=== PATIENT | female | born 1960 | race Caucasian/White ===

== ENCOUNTER 2017-07-12 13:26 | Emergency (ER) | payer MEDICARE, SELFPAY ==
[2017-07-12 13:26] VITALS: BP 121/85; PULSE 116; RESP 18; TEMP 37.7; O2SAT 94; BMI 30.9
[2017-07-12] MEDS: 0.9% Normal Saline 1,000 ML 999 ML IV (14:12)
[2017-07-12 14:18] LABS: Absolute Lymphocyte Count 2.12 X10^3/ul (0.83-4.51); Absolute Neutrophil Count 4.5 X10^3/uL (2.0-7.7); Basophil# 0.11 X10^3/uL; Basophil% 1.4 % (0-1); Eosinophil# 0.19 X10^3/uL; Eosinophils% 2.4 % (0-5); Hematocrit 43.4 % (37-47); Hemoglobin 15.2 g/dl (12.0-15.0); Lymphocyte # 2.12 X10^3/ul (4.0); Lymphocyte % 27.1 % (19-41); Mean Corpuscular Hgb 31.3 pg (27.0-32.0); Mean Corpuscular Volume 89.5 fL (81-99); Monocyte# 0.84 X10^3/uL; Monocyte% 10.7 % (0-10); Neutrophil # 4.53 X10^3/uL (2.7-7.7); Platelet Count 183 K/mm3 (150-450); RBC Distribution Width CV 13.9 % (11.6-14.6); RBC Distribution Width SD 44.6 fl (35.1-43.9); Red Blood Count 4.85 M/mm3 (4.2-5.4); White Blood Count 7.8 K/mm3 (4.4-11.0)
[2017-07-12 14:19] LABS: POSITIVE COUNT NO; POSITIVE DIFFERENTIAL NO; POSITIVE MORPHOLOGY NO
[2017-07-12 14:28] LABS: ALB/GLOB Ratio 0.8 RATIO (0.9-2.4); AST(SGOT) 61 U/L (15-37); Alanine Aminotransfer ALT/SGPT 77 U/L (13-56); Albumin, Serum 3.7 g/dL (3.2-5.0); Alkaline Phosphatase 49 U/L (45-117); Anion Gap 10 (5-15); BUN 14 mg/dL (7-18); BUN/Creat Ratio 17.7 RATIO (10-20); Calcium,Total 8.7 mg/dL (8.5-10.1); Chloride 102 mmol/L (98-107); Creatinine, Serum 0.79 mg/dL (0.55-1.02); EST Glomerular Filtration Rate 79 mL/min (>60); Est Glom Filt Rate - Afr Amer 96 mL/min (>60); Estimated Creatinine Clearance 67.03 ml/min; Globulin 4.9 g/dL (2.2-4.2); Glucose 166 mg/dL (74-106); Lipase 139 U/L (73-393); Potassium 4.2 mmol/L (3.5-5.1); Protein, Total 8.6 g/dL (6.4-8.2); Sodium Level 135 mmol/L (136-145)
[2017-07-12] MEDS: Morphine 4 MG/ML Syringe IV (15:16)
[2017-07-12 15:20] VITALS: BP 139/71; PULSE 101; RESP 18; O2SAT 94
[2017-07-12 15:27] LABS: Bacteria 0 SEEN /hpf (None Seen); Mucous, Urine 0 SEEN /hpf (<or=2+); Red Blood Cells-Urine 0 SEEN /hpf (0-5); Squamous Epithelial Cells - UA 0 SEEN /hpf (5-10); White Blood Cells 0 SEEN /hpf (0-5)
[2017-07-12 15:34] LABS: Color, Urine Yellow (Yellow); Glucose, Dipstick 1000 mg/dl (Normal); Ketone-Dipstick 50 mg/dl (Negative); Leukocyte Esterase-Dipstick Negative /ul (Negative); Nitrite-Dipstick Negative (Negative); Occult Blood-Urine Negative /ul (Negative); Protein-Dipstick Negative (Negative); Specific Gravity, Urine 1.015 (1.002-1.030); Urine Bilirubin Dipstick Negative (Negative); Urine Clarity Clear (Clear); Urine Urobilinogen Normal (Normal)
[2017-07-12 15:45] VITALS: O2SAT 89
--- NOTE | 2017-07-12 15:48 | ED.VISSUMM ---
- ER Visit Summary Date of Service: 07/12/17 Chief Complaint: Abdominal pain History of Present Illness: The patient is a 56 F who presents with abdominal pain. Been ongoing for the past 3 days. She describes cramping and bloating in her epigastric area. It does not radiate. She is felt nauseous without vomiting. She started out constipated but then it moved to diarrhea yesterday. She also admits to some dysuria. She admits to a history of hiatal hernia as well as gastritis. She doubled her Protonix for the past couple of days but has not helped. She admits to some cold-like symptoms including a runny nose. Her temperature is 100.1?F earlier this week. Physical Examination: Vital signs reviewed. HEENT exam unremarkable. Heart is regular rate and rhythm without murmurs. Lungs are clear to auscultation. Abdomen is soft with epigastric tenderness to palpation. Extremities reveal no edema. Skin exam normal. Neurologic exam normal. Test Results: Laboratory studies are normal except for sodium 135, glucose 166. ALT and AST are slightly elevated at 77 and 61. Urinalysis normal Emergency Department Course and Treatment: Patient was given a GI cocktail and normal saline. She had no relief of her pain so she was given morphine and she feels better. This is likely gastritis. I will give the patient Shay and Sarah for home. She will need to follow-up with her PCP. I do not feel any imaging is necessary at this time. Treatment Plan: [] Disposition: Discharge Impression: Abdominal pain This note was generated with [employer] dictation software. It may contain incorrect words, spelling, and punctuation that were not noted in review of the chart prior to signing ED Disposition - Plan for ED Patient: Chief Complaint: Abd Pain Referrals: Care Physician,No Primary [Primary Care Provider] -
--- NOTE | 2017-07-12 15:50 | ED.DEP ---
ED Disposition - Plan for ED Patient: Disposition: Home or Assisted Living Chief Complaint: Abd Pain Instructions: ED Abdominal Pain Unkn Cause Prescriptions: Ondansetron [Zofran Odt] 4 mg PO Q8H PRN PRN #10 tab PRN Reason: Nausea Dicyclomine HCl [Bentyl] 20 mg PO TIDAC #20 cap Referrals: Care Physician,No Primary [Primary Care Provider] -
[2017-07-12 16:00] VITALS: BP 141/70; PULSE 100; RESP 18; O2SAT 93
== END 2017-07-12 16:02 | disposition home or self-care (01) ==
PROVIDERS: Emergency Provider Emergency Medicine
DX: R10.13 Epigastric pain (principal); R11.0 Nausea; K29.70 Gastritis, unspecified, without bleeding; K44.9 Diaphragmatic hernia without obstruction or gangrene; E03.9 Hypothyroidism, unspecified; E11.9 Type 2 diabetes mellitus without complications; Z79.84 Long term (current) use of oral hypoglycemic drugs; Z79.899 Other long term (current) drug therapy
CPT/HCPCS: 80053; 81001; 83690; 85025; 96361; 96374; 99283; J7030; A4216

== ENCOUNTER 2022-04-20 19:34 | Emergency (ER) | payer OTHER, SELFPAY ==
[2022-04-20 19:36] VITALS: BP 158/67; PULSE 92; RESP 16; TEMP 36.7; O2SAT 94; BMI 31.9
--- NOTE | 2022-04-20 21:06 | CT_ITS ---
INDICATION: Trauma EXAMINATION: CT BRAIN - CT Head or Brain W/O Contrast Injection TECHNIQUE: Multiple axial images were obtained of the head without intravenous contrast. A radiation dose optimization technique was used for this scan. IV Contrast dosage and agent: None. COMPARISON: None FINDINGS: BRAIN PARENCHYMA: No intra- or extra-axial hemorrhage. No evidence of acute infarct. No intracranial mass or mass effect. There is preservation of the bhandari/white matter interface. Posterior fossa structures are unremarkable. CSF SPACES: Appropriate for age. No hydrocephalus. Basal cisterns are patent. CALVARIUM, SKULL BASE, PARANASAL SINUSES AND MASTOID AIR CELLS: Multifocal paranasal sinus mucosal thickening. Small anterior right scalp contusion. ORBITS: Both globes, extraocular muscles, optic nerves and retrobulbar fat appear unremarkable. ASPECTS Score for Acute Strokes: 10 CT/Brain/Head without Contrast IMPRESSION: Negative Brain CT without contrast. Electronically Signed: Luis M Sanchez MD at 21:36 EST ,
--- NOTE | 2022-04-20 21:07 | EDS_ITS ---
HPI History of Present Illness Chief Complaint: Head Injury Informant: patient Narrative Narrative: Patient is a 61-year-old female with history of hypothyroid, diabetes and GERD presenting with head injury. Patient was attempting to bring her cat inside when she tripped on other outdoor rocks and fell headfirst onto a rock. She does not lose consciousness but temporarily could not see. She has a pretty severe headache which is slowly improving now that she is laying in bed. 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 She not take anything for symptoms prior to arrival. She does have some tingling on the right side of her face but denies any other numbness or weakness. Is not on any anticoagulation. No other complaints at this time. Tetanus Immunization: >10 years [facility] Medical History Diabetes type 2, controlled Hiatal hernia Hyperlipemia Hypothyroid Home Medications dapagliflozin 5 mg tablet (Farxiga) 5 mg PO DAILY 07/12/17 [History Last Taken Unknown] fexofenadine 180 mg tablet (Alice Allergy) 180 mg PO DAILY 07/12/17 [History Last Taken Unknown] fluticasone propionate 50 mcg/actuation nasal spray,suspension 2 spray DAILY 07/12/17 [History Last Taken Unknown] levothyroxine 175 mcg tablet 150 mcg PO DAILY 07/12/17 [History Last Taken Unknown] pantoprazole 40 mg tablet,delayed release 40 mg PO DAILY 07/12/17 [History Last Taken Unknown] sitagliptin phos 100 mg-metformin ER 1,000 mg tablet,extend rel 24h mp (Janumet XR) 1 ea PO DAILY 07/12/17 [History Last Taken Unknown] atorvastatin 40 mg tablet 40 mg PO DAILY 04/20/22 [History Last Taken Unknown] Allergy/AdvReac Type Severity Reaction Status Date / Time amoxicillin Allergy Rash Verified 04/20/22 19:39 clindamycin Allergy Hives Verified 04/20/22 19:39 Sulfa (Sulfonamide Allergy Rash Verified 04/20/22 19:38 Antibiotics) Social History Smoking Status: Former smoker ROS ROS ED Constitutional Constitutional ED: Denies chills or fever(s) Eyes Eyes: Reports change in vision ENT ENT ED: Denies ear pain, rhinorrhea or sore throat Cardiovascular Cardiovascular: Denies chest pain Respiratory/Chest Respiratory/Chest: Denies cough Gastrointestinal Gastrointestinal: Denies nausea or vomiting Musculoskeletal Musculoskeletal: Denies arthralgias or myalgias Integumentary Denies rash Neurologic Neurologic: Reports headache(s); Denies weakness Psychiatric Psychiatric: Denies anxiety Hematologic/Lymphatic Hematologic/Lymphatic: Denies easy bleeding or easy bruising EXAM Physical Exam Const Vital Signs: 04/20/22 19:36 04/20/22 20:51 Temperature 98.0 F Temperature Source Temporal Pulse Rate 92 Respiratory Rate 16 Respiratory Effort Normal Respiratory Depth Normal Respiratory Pattern Normal Blood Pressure 158/67 H Blood Pressure Mean 97 Pulse Ox 94 Oxygen Delivery Method Room Air Room Air Positive well nourished and well developed General Appearance ED: well developed and NAD HEENT Reports TM's clear HEENT Narrative: Abrasion and swelling of the right forehead. No active bleeding. Slight edema of the right eyebrow area and upper eyelid. Nose: Negative for septum abnormal Tympanic Membrane ED: Yes TM's clear Eyes PERRL and EOMs intact bilaterally General Eye ED: Yes other Other Details: No conjunctival hemorrhage appreciated, no signs of entrapment of the eye muscles Neck full ROM Neck Narrative: No step-off sign. General: Negative for tenderness Chest Wall inspection of chest normal Resp normal respiratory effort and clear to auscultation bilaterally Cardio regular rhythm and no murmurs GI non-distended Extremity normal to inspection and full ROM Neuro oriented x3, CN's II-XII intact bilaterally, moves all extremities, no focal motor deficits and no sensory deficits noted Skin Skin Narrative: Approximately 4 cm irregular superficial abrasion to the right forehead. Scattered superficial abrasions to the left thenar eminence/medial wrist MDM MDM MDM Narrative Medical decision making narrative: Patient is evaluated for closed head injury. She has an abrasion to her forehead. She has a temporary vision loss and some tingling on the right side of her face. Because of these findings I did obtain a head CT to rule out intracranial hemorrhage. Clinically I do not suspect an orbit fracture. CT is negative for any skull fracture or intracranial bleed. Patient is feeling better in the ER. She was given a dose of Tylenol. Will be discharged home. Is given concussion precautions. Is given a work note for tomorrow. Counseled alternate ibuprofen and Tylenol. Use ice for her forehead. Counseled on dependent swelling of the face associated with injuries. Patient agreeable with plan of care. Discharged home in stable and improved condition. Radiography Diagnostic Testing: Clinical Impression(s) from Imaging Studies Brain CT 04/20/22 21:06 IMPRESSION: Negative Brain CT without contrast. Electronically Signed: Luis M Sanchez MD at 21:36 EST , Discharge Plan Triage Chief Complaint: Head Injury ED Provider: Patricia Bartlett Dx/Rx/DC Orders Clinical Impression: Closed head injury, Abrasion of forehead Instructions: ED Concussion, ED Head Injury (Adult) Prescriptions: No Action levothyroxine 175 MCG tablet 150 mcg PO DAILY fexofenadine [Alice Allergy] 180 MG tablet 180 mg PO DAILY pantoprazole 40 MG tablet 40 mg PO DAILY fluticasone propionate 1 SPRAY spray,suspension 2 spray NASAL DAILY Janumet XR 1 EACH tablet, ER multiphase 24 hr 1 ea PO DAILY Farxiga 5 MG tablet 5 mg PO DAILY atorvastatin 40 mg Tablet 40 mg PO DAILY Stand Alone Forms: ED Work / School Excuse Disposition Disposition: Home, Self Care
[2022-04-20] MEDS: Acetaminophen 325 MG Tablet 650 MG PO (21:17)
== END 2022-04-20 22:33 | disposition home or self-care (01) ==
PROVIDERS: Emergency Provider Emergency Medicine; Visit Provider Emergency Medicine
DX: S00.81XA Abrasion of other part of head, initial encounter (principal); E11.9 Type 2 diabetes mellitus without complications; E78.5 Hyperlipidemia, unspecified; E03.9 Hypothyroidism, unspecified; Z79.84 Long term (current) use of oral hypoglycemic drugs; Z79.899 Other long term (current) drug therapy; W01.0XXA Fall on same level from slipping, tripping and stumbling without subsequent striking against object, initial encounter; Z87.891 Personal history of nicotine dependence
CPT/HCPCS: 70450; 99283

== ENCOUNTER 2025-03-31 16:44 | Emergency (ER) | payer MEDICARE, OTHER, SELFPAY ==
[2025-03-31 16:45] VITALS: BP 153/73; PULSE 87; RESP 15; TEMP 36.6; O2SAT 97; BMI 29.8
--- NOTE | 2025-03-31 16:48 | EX.ED.DYSGE1 ---
HPI History of Present Illness Chief Complaint: Abd Pain [facility] Medical History (Updated 03/31/25 @ 17:21 by Joseluis George) Hiatal hernia Hyperlipemia Hypothyroid Diabetes type 2, controlled Home Medications ?Medication ?Instructions ?Recorded ?Last Taken ?Type fexofenadine 180 mg tablet 180 mg PO DAILY 07/12/17 Unknown History (Alice Allergy) pantoprazole 40 mg tablet,delayed 40 mg PO DAILY 07/12/17 Unknown History release atorvastatin 40 mg tablet 40 mg PO DAILY 04/20/22 Unknown History biotin 10,000 mcg chewable tablet 20,000 mcg PO DAILY 03/31/25 Unknown History (Hair, Skin and Nails (biotin)) empagliflozin 10 mg-metformin ER 1 tab PO DAILY 03/31/25 Unknown History 1,000 mg tablet,extended release 24hr (Synjardy XR) levothyroxine 150 mcg tablet 150 mcg PO DAILY 03/31/25 Unknown History lorazepam 0.5 mg tablet 0.5 mg PO QHS PRN 03/31/25 Unknown History melatonin 5 mg capsule 10 mg PO QHS 03/31/25 Unknown History multivitamin (Daily Multi-Vitamin 1 tab PO DAILY 03/31/25 Unknown History tablet) naproxen sodium 220 mg tablet 440 mg PO DAILY PRN pain 03/31/25 Unknown History (Flanax (naproxen)) tirzepatide 7.5 mg/0.5 mL 7.5 mg subcut QWEEK 03/31/25 03/28/25 History subcutaneous pen injector (Mounjaro) Allergy/AdvReac Type Severity Reaction Status Date / Time amoxicillin Allergy Rash Verified 03/31/25 16:47 clindamycin Allergy Hives Verified 03/31/25 16:47 Sulfa (Sulfonamide Allergy Rash Verified 03/31/25 16:47 Antibiotics) Social History Smoking Status: Former smoker EXAM Physical Exam Const Vital Signs: 03/31/25 16:45 Temperature 97.8 F Temperature Source Oral Pulse Rate 87 Respiratory Rate 15 Blood Pressure 153/73 H Blood Pressure Mean 99 Pulse Ox 97 Oxygen Delivery Method Room Air MDM MDM MDM Narrative Medical decision making narrative: HISTORY OF PRESENT ILLNESS: Chief complaint: Abdominal pain 64-year-old female history of hyperlipidemia, hypothyroidism, type 2 diabetes, GERD presents with concern of right lower quadrant pain for 2 weeks. She states gallbladder feels hard to protruded. Has been noticing this for 2 weeks. No inciting event. Not worse with food. Normal bowel movements. Last bowel movement was yesterday. No melena hematochezia noted Notes pain with initiation of urination. Denies suprapubic pain. Denies fevers vomiting. Denies history of abdominal surgeries. REVIEW OF SYSTEMS: Pertinent positives: Abdominal pain, dysuria Pertinent negatives: As per HPI PHYSICAL EXAM: Nursing triage notes reviewed, Vital signs reviewed Constitutional: please see [facility] HENT: MMM Eyes: Pupils equal round and reactive to light, Extraocular muscles intact Neck: No stridor, no JVD, full neck ROM Lungs: Clear to auscultation, No wheezing or rales. No increased work of breathing, no conversational dyspnea, no accessory muscle use, no nasal flaring. No respiratory distress noted Heart: Regular rate and rhythm, No murmurs, No rubs and No gallops, 2+ distal pulses (radial, femoral, posterior tibial) in all extremities Abdomen: Soft, there is no tenderness, rigidity, rebound or guarding, no obvious peritoneal signs, no palpable pulsatile abdominal masses, no auscultated abdominal bruit : No CVAT Extremities: No edema Neuro: No new focal neurological deficits, cranial nerves II through XII intact, 5/5 strength in all present extremities. Intact sensation to light touch in all present extremities, 2+ reflexes bilateral patella tendons. Skin: No rash or lesions noted MEDICAL DECISION MAKING: Chief Complaint: please see HPI External records reviewed: Reviewed prior ED visit Factors affecting care: As per HPI Social determinants of health: Denies alcohol History obtained from others: none Consults: none [facility] Narrative: The patient was initially hemodynamically stable, afebrile and nontoxic-appearing. Exam without palpable hernia. No overlying skin changes. No rectal quadrant tenderness. Mauro sign. No pain over the appendix I considered the following differential diagnosis: Abdominal pain differential I obtained a broad lab and imaging workup to further determine if the patient was suffering from a life-threatening etiology. Gave Toradol for pain ALL IMAGES (IF OBTAINED) HAVE BEEN PERSONALLY REVIEWED AND INTERPRETED BY MYSELF. CBC without leukocytosis, severe anemia, no thrombocytopenia. CMP without evidence of acute kidney injury, significant electrolyte abnormality, anion gap to suggest end organ hypo-perfusion, no evidence of metabolic acidosis with a normal bicarbonate, no evidence of hepatobiliary obstructive pathology. Lipase is wnl indicating no pancreatic inflammation. Urinalysis shows no evidence of urinary inflammation suggestive of UTI CT scan abdomen pelvis shows no evidence of hernia, no evidence of bowel obstruction or other abnormality. Repeat abdominal exam benign. The patient's presentation remains unclear at this time. It is unlikely be life-threatening given her stable vitals, reassuring labs, reassuring images. Will have her follow-up with her PCP for further care as an outpatient. Strict return precautions will be discussed. The patient and/or family, caregivers express understanding. The patient and/or family, caregivers agrees with the plan. Shared decision making: I will have a discussion with the patient and or visitors regarding risk/benefits of further testing or admission. They will be made aware of of the risk/benefits inherent in this decision they will be given the opportunity to voice understanding. Total critical care time today provided was at least 0 minutes. This excludes separately billable procedures. Critical care time (if documented) is secondary to the patient having high probability of clinically significant/life threatening deterioration in the patient's condition which required my urgent intervention. Impression: 1. Abdominal pain 2. Abdominal protrusion Dispo: Discharge home This note was generated with [employer] dictation software. It may contain incorrect words, spelling, and punctuation that were not noted in review of the chart prior to signing. Lab Data Labs: Laboratory Results - last 24 hr 03/31/25 03/31/25 17:00 18:05 WBC 7.9 RBC 4.85 Hgb 14.2 Hct 42.4 MCV 87.4 MCH 29.3 MCHC 33.5 RDW Std Deviation 41.9 RDW Coeff of Naa 13.2 Plt Count 238 MPV 9.4 Immature Gran % (Auto) 0.400 Neut % (Auto) 42.3 L Lymph % (Auto) 43.1 H [place] % (Auto) 8.0 Eos % (Auto) 4.7 Baso % (Auto) 1.5 H Absolute Neuts (auto) 3.3 Absolute Lymphs (auto) 3.38 Nucleated RBC % 0 Sodium 136 Potassium 4.2 Chloride 101 Carbon Dioxide 23.3 Anion Gap 12 BUN 15 Creatinine 0.91 Estim Creat Clear Calc 61.82 Est GFR (MDRD) Non-Af 70 BUN/Creatinine Ratio 16.1 Glucose 135 H Calcium 9.4 Total Bilirubin 0.56 AST 34 H ALT 52 H Alkaline Phosphatase 62 Total Protein 7.6 Albumin 4.2 Globulin 3.4 Albumin/Globulin Ratio 1.2 Lipase 42 Urine Color Yellow Urine Clarity Clear Urine pH 7.0 Ur Specific [place] 1.010 Urine Protein 15 H Urine Glucose (UA) 1000 H Urine Ketones Negative Urine Occult Blood Negative Urine Nitrite Negative Urine Bilirubin Negative Urine Urobilinogen Normal Ur Leukocyte Esterase Negative Urine RBC 0-5 SEEN Urine WBC 0-5 SEEN Ur Squamous Epith Cells 0-5 SEEN Urine Bacteria 0 SEEN Urine Mucus 0 SEEN Radiography Diagnostic Testing: Clinical Impression(s) from Imaging Studies Abdomen/Pelvis CT 03/31/25 17:48 IMPRESSION: Diffuse fluid within the small bowels may reflect enteritis. No bowel obstruction. No definite hernias noted. Reading Location: [facility] Discharge Plan Triage Chief Complaint: Abd Pain ED Provider: Connor Castillo Dx/Rx/DC Orders Prescriptions: No Action fexofenadine [Alice Allergy] 180 MG tablet 180 mg PO DAILY pantoprazole 40 MG tablet 40 mg PO DAILY atorvastatin 40 mg Tablet 40 mg PO DAILY lorazepam 0.5 mg tablet 0.5 mg PO QHS PRN levothyroxine 150 mcg tablet 150 mcg PO DAILY Synjardy XR 10-1,000 mg tablet, IR - ER, biphasic 24hr 1 tab PO DAILY Mounjaro 7.5 mg/0.5 mL pen injector 7.5 mg subcut QWEEK naproxen sodium [Flanax (naproxen)] 220 mg tablet 440 mg PO DAILY PRN (Reason: pain) Hair, Skin and Nails (biotin) 10,000 mcg tablet,chewable 20,000 mcg PO DAILY multivitamin [Daily Multi-Vitamin] Tablet 1 tab PO DAILY melatonin 5 mg capsule 10 mg PO QHS Primary Care Provider: Jennifer Bundy Referrals: [facility] Doctor,Out of [Non-Staff, Medical] Print Language: Kittitian
[2025-03-31 17:21] LABS: Hematocrit 42.4 % (37-47); Hemoglobin 14.2 g/dL (12.0-15.0); Immature Granulocytes Count 0.030 X10^3/uL (0.0-0.0); Mean Corp Hgb Conc 33.5 g/dL (32-36); Mean Corpuscular Volume 87.4 fL (81-99); Mean Platelet Vol. 9.4 fl (6.2-12.0); NRBC Flagged by Analyzer 0 % (0-5); Platelet Count 238 K/mm3 (150-450); RBC Distribution Width CV 13.2 % (11.6-14.6); RBC Distribution Width SD 41.9 fl (35.1-43.9); Red Blood Count 4.85 M/mm3 (4.2-5.4); White Blood Count 7.9 K/mm3 (4.4-11.0)
[2025-03-31 17:27] LABS: AST(SGOT) 34 U/L (<=31); Alanine Aminotransfer ALT/SGPT 52 U/L (<=34); Albumin, Serum 4.2 g/dL (3.4-4.8); Alkaline Phosphatase 62 U/L (35-104); Anion Gap 12 (7-18); BUN 15 mg/dL (4-19); BUN/Creat Ratio 16.1 RATIO (10-20); Calcium,Total 9.4 mg/dL (7.6-11.0); Carbon Dioxide 23.3 mmol/L (20.0-29.0); Chloride 101 mmol/L (96-106); Estimated Creatinine Clearance 61.82 ml/min (50-250); Globulin 3.4 g/dL (2.2-4.2); Glucose 135 mg/dL (70-99); Lipase 42 U/L (13-75); Potassium 4.2 mmol/L (3.5-5.1)
--- NOTE | 2025-03-31 17:48 | CT_ITS ---
PROCEDURE: ABDOMEN/PELVIS W IV CONT ONLY 03/31/2025 REASON FOR EXAM: ?HERNIA IN RIGHT MID ABDOMEN TECHNIQUE: Procedure Code: [id number] Modality: CT Procedure: ABDOMEN/PELVIS W IV CONT ONLY Coronal and Sagittal reconstruction series were provided. CONTRAST: 100 mL of Isovue 370 One or more dose reduction techniques were used (e.g., Automated exposure control, adjustment of the mA and/or kV according to patient size, use of iterative reconstruction technique. RADIATION DOSE SUMMARY: DLP: 465 mGycm COMPARISON: None FINDINGS: Limited sections of the lung bases demonstrate no focal pulmonary mass or consolidations. The liver, spleen, pancreas, and both adrenal glands demonstrate no acute findings. Minimal hepatic steatosis. Mild fatty atrophy of pancreas The gallbladder is contracted. The stomach is distended with residue. Diffuse fluid within the small bowels may reflect enteritis. The appendix is normal. No colonic obstruction. Moderate stool burden which may reflect constipation. There is no free air or significant free fluid. The kidneys are unremarkable. The urinary bladder is distended. The pelvic structures are intact. There is no solid pelvic mass. No significant lymphadenopathy. The aorta and IVC demonstrate no acute findings. Mild atherosclerosis of the abdominal vasculature. Visualized osseous structures demonstrate no acute abnormality. CT/Abdomen/Pelvis W IV Cont ONLY IMPRESSION: Diffuse fluid within the small bowels may reflect enteritis. No bowel obstruct ion. No definite hernias noted. Reading Location: [facility]
[2025-03-31 18:11] LABS: Mucous, Urine 0 SEEN /hpf (<or=2+)
[2025-03-31 18:18] LABS: Color, Urine Yellow (Yellow); Glucose, Dipstick 1000 mg/dl (Normal); Ketone-Dipstick Negative (Negative); Leukocyte Esterase-Dipstick Negative /ul (Negative); Nitrite-Dipstick Negative (Negative); Occult Blood-Urine Negative /ul (Negative); Protein-Dipstick 15 mg/dl (Negative); Specific Gravity, Urine 1.010 (1.002-1.030); Urine Bilirubin Dipstick Negative (Negative)
[2025-03-31 18:33] LABS: Red Blood Cells-Urine 0-5 SEEN /hpf (0-5); Squamous Epithelial Cells - UA 0-5 SEEN /hpf (5-10)
[2025-03-31 19:00] VITALS: BP 141/78; PULSE 78; RESP 16; O2SAT 100
[2025-03-31 19:36] VITALS: BP 141/78; PULSE 78; RESP 16; TEMP 36.6; O2SAT 100
--- OUTSIDE RECORDS SUMMARY | 2025-03-31 20:27 | XMS RPT_ITS | CCD ---
Author Organization [facility] Care Team Providers Care Dietetics Teacher Name Role Phone GONZALO, ASHLY J Unavailable Unavailable GONZALO, ASHLY J Unavailable Unavailable ESTERLE, JENNIFER Unavailable Unavailable GONZALO, ASHLY J Unavailable Unavailable GONZALO, ASHLY J Unavailable Unavailable ESTERLE JENNIFER Unavailable Unavailable CYNTHIA FISCHER Unavailable Unavailable CYNTHIA FISCHER Unavailable Unavailable JENNIFER HERNANDEZ Unavailable Unavailable Care Physician, No Primary Primary Care Unava ilPatricia Styles Attending Unavailable Jennifer Hernandez MD Primary Care Provider JENNIFER HERNADNEZ Primary Care Unavailable NABIL TREVINO Attending Unavailable JENNIFER HERNANDEZ Referring Unavailable JENNIFER HERNANDEZ Primary Care Unavailable Allergies Allergy Classification Reported Allergen(s) Allergy Type Date of Onset Reaction(s) Facility (1 source) amoxicillin Drug Allergy [facility] (2 sources) clindamycin; Translations: [CLINDAMYCIN] Drug Allergy 3 [facility] (1 source) Sulfonamides (Antibiotic) Drug allergy (disorder) [facility] (1 source) Amoxicillin Drug Allergy 3 [facility] (1 source) Clindamycin Drug Allergy 3 [facility] (2 sources) Sulfonamides (Antibiotic); Translations: [SULFA (SULFONAMIDE ANTIBIOTICS)] Allergy to substance 3 [facility] (1 source) Amoxicillin Drug Allergy 3 [facility] (1 source) Clindamycin Drug Allergy 3 [facility] (1 source) Sulfonamides (Antibiotic) Drug allergy (disorder) 3 [facility] Medications Current Medications Medication Drug Class(es) Dates Sig (Normalized) Sig (Original) atorvastatin 40 mg oral tablet (1 source) HMG-CoA Reductase Inhibitor Start: 04-20-2022 take 40 mg by mouth once daily Atorvastatin Active 40 MG PO DAILY April 20, 2022 12:00am dapagliflozin 5 mg oral tablet (1 source) Sodium-Glucose Cotransporter 2 Inhibitor Start: 07-12-2017 take 1 tablet by mouth once daily Dapagliflozin (Farxiga) 5 MG tablet Active 5 MG PO DAILY July 11, 2017 11:00pm fexofenadine hydrochloride 180 mg oral tablet (1 source) Histamine-1 Receptor Antagonist Start: 07-12-2017 take 1 tablet by mouth once daily Fexofenadine (Alice Allergy) 180 MG tablet Active 180 MG PO DAILY July 11, 2017 11:00pm fluticasone propionate 0.05 mg/actuat metered dose nasal spray (1 source) Corticosteroid Start: 07-12-2017 Fluticasone Propionate Active 2 SPRAY NASAL DAILY July 11, 2017 11:00pm levothyroxine sodium 0.175 mg oral tablet (1 source) l-Thyroxine Start: 07-12-2017 take 150 ug by mouth once daily Levothyroxine Active 150 MCG PO DAILY July 11, 2017 11:00pm 24 hr metFORMIN hydrochloride 1000 mg / SITagliptin 100 mg extended release oral tablet (1 source) Biguanide, Dipeptidyl Peptidase 4 Inhibitor Start: 07-12-2017 Sitagliptin Phos-Metformin (Janumet Xr 100-1,000 Mg Tablet) 1 EACH tablet, ER multiphase 24 hr Active 1 EACH PO DAILY July 11, 2017 11:00pm pantoprazole 40 mg delayed release oral tablet (1 source) Proton Pump Inhibitor Start: 07-12-2017 take 40 mg by mouth once daily Pantoprazole Active 40 MG PO DAILY July 11, 2017 11:00pm Problems Problem Classification Problem Date Documented Da te Episodic/Chronic Abdominal hernia (1 source) Diaphragmatic hernia without obstruction or gangrene; Translations: [DIAPH HERNIA W/O OBST/GANGRENE] Onset: 08-21-2017 Episodic Abdominal pain (2 sources) Epigastric pain; Translations: [EPIGASTRIC PAIN] Onset: 08-28-2017 Episodic Diabetes mellitus without complication (1 source) Type 2 diabetes mellitus without complications; Translations: [TYPE 2 DM WITHOUT COMPLICATIONS] Onset: 08-21-2017 Chronic Other aftercare (1 source) Other care home (current) drug therapy; Translations: [OTH CORRECTION CURRENT DRUG THERAPY] Onset: 08-21-2017 Episodic Other gastrointestinal disorders (1 source) Personal history of other diseases of the digestive system; Translations: [PERSONAL HX OTH DZ DIGESTIVE SYSTEM] Onset: 08-21-2017 Episodic Other injuries and conditions due to external causes (1 source) Closed injury of head; Translations: [Unspecified injury of head, initial encounter] 04-20-2022 Episodic Other injuries and conditions due to external causes (1 source) Unspecified injury of head, initial encounter; Translations: [Unspecified injury of head, initial encounter] Onset: 05-01-2022 Episodic Other injuries and conditions due to external causes (1 source) Unspecified injury of thorax, initial encounter; Translations: [Soft tissue injury of chest wall, initial encounter] Onset: 03-31-2023 Episodic Other injuries and conditions due to external causes (1 source) Unspecified injury of abdomen, initial encounter; Translations: [Injury of flank, initial encounter] Onset: 03-31-2023 Episodic Screening or history of mental health and substance abuse (1 source) Personal history of nicotine dependence; Translations: [PERSONAL HISTORY OF NICOTINE DEPEND] Onset: 08-21-2017 Episodic Superficial injury; contusion (1 source) Abrasion of forehead; Translations: [Abrasion of other part of head, initial encounter] 04-20-2022 Episodic Thyroid disorders (2 sources) Hypothyroidism, unspecified; Translations: [Nontoxic goiter, unspecified] Onset: 08-21-2017 Chronic 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 drugs; Translations: [CORRECTION USE ORAL HYPOGLYCEMIC DX] Onset: 08-21-2017 Unclassified (1 source) Chronic migraine with aura, not intractable, without status migrainosus; Translations: [Chronic migraine with aura, not intractable, without status migrainosus] Onset: 01-26-2023 Results Test Name Value Interpretation Reference [facility] ALL[facility] HEALTH HNO ID: [id number] Author: Teresa Chin RT(R) Service: Radiology Author Type: Regional Recruiter Type: Allied Health Filed: 03/31/2023 6:04 PM Note Text: Radiology Service Progress Note DATE OF SERVICE: March 31, 2023 TIME: 6:04 PM PATIENT IDENTITY VERIFICATION COMPLETED USING TWO (2) STANDARD IDENTIFIERS: Name and Date of confirmed by patient verbally and Name and Date of confirmed by identification band. FALL SCREENING: Has the patient had 2 falls in the last year or 1 fall with injury or currently using an Ambulatory Assistive Device (Walker, Cane, Wheelchair, Crutches, etc.)? Emergency Room Patient: Screened in ED PATIENT GENDER DATA: Female. status: : No status: NO. PATIENT RELEVANT IMPLANT DATA REVIEWED: Not Applicable ALLERGIES: Reviewed and unchanged CONTRAST ALLERGY: NO. EXAM: CT -CONTRAST INDUCED NEPHROPATHY RISK FACTORS: Patient age > 60 years CREATININE: Creatinine Date Value Ref Range Status 03/31/2023 0.58 0.58 - 0.96 mg/dL Final 07/13/2017 0.60 0.51 - 0.95 mg/dL Final Estimated Glomerular Filtration Rate Date Value Ref Range Status 03/31/2023 101 >=60 mL/min/1.73m? Final Comment: Estimated Glomerular Filtration Rate (eGFR) is calculated using the 2020 CKD-EPI creatinine equation. This equation utilizes serum creatinine, sex, and age as parameters. The creatinine assay has traceable calibration to isotope dilution-mass spectrometry. Refer to KDIGO guidelines for clinical interpretation. In patients with unstable renal function, e.g. those with acute kidney injury, the eGFR may not accurately reflect actual GFR. P.O.C.T. RESULTS: N/A March 31, 2023 TREATMENT: N/A PERIPHERAL IV DATA: Inpatient - refer to LDA documentation RADIOLOGY DEPARTMENT: CT; Exam(s) Completed: Chest Abdomen Pelvis SIGNATURE: RT Kushal(R) PATIENT NAME: Kourtney Lubin DATE: March 31, 2023 TIME: 6:04 PM Normal [facility] CBC panel Auto (Bld)on 03-31 Erythrocyte distribution width (RBC) [Ratio] 13.1 % Normal 11.5-15.0 [facility] Comment on above: Order Comment: Speci men Type: BLOOD SPECIMEN Ordering Facility: [facility] Address: [address] [place] [address] Performed By: #### 5 8410-2 #### [facility] CLIA [id number] [address] [place] [address] [place] Hematocrit (Bld) [Volume fraction] 46.8 % High 36.0-46.0 [facility] Comment on above: Order Comment: Speci men Type: BLOOD SPECIMEN Ordering Facility: [facility] Address: [address] [place] [address] Performed By: #### 5 8410-2 #### [facility] CLIA [id number] [address] [place] [address] [place] Hemoglobin (Bld) [Mass/Vol] 15.4 g/dL Normal 11.5-15.5 [facility] Comment on above: Order Comment: Speci men Type: BLOOD SPECIMEN Ordering Facility: [facility] Address: [address] [place] [address] Performed By: #### 5 8410-2 #### [facility] CLIA [id number] [address] [place] [address] [place] MCH (RBC) [Entitic mass] 29.6 pg Normal 26.0-34.0 [facility] Comment on above: Order Comment: Speci men Type: BLOOD SPECIMEN Ordering Facility: [facility] Address: [address] [place] [address] Performed By: #### 5 8410-2 #### [facility] CLIA [id number] [address] [place] [address] [place] MCHC (RBC) [Mass/Vol] 32.9 g/dL Normal 30.5-36.0 [facility] Comment on above: Order Comment: Speci men Type: BLOOD SPECIMEN Ordering Facility: [facility] Address: [address] [place] [address] Performed By: #### 5 8410-2 #### [facility] CLIA [id number] [address] [place] MCV (RBC) [Entitic vol] 89.8 fL Normal 80.0-100.0 [facility] Comment on above: Order Comment: Speci men Type: BLOOD SPECIMEN Ordering Facility: [facility] Address: [address] [place] [address] Performed By: #### 5 8410-2 #### [facility] CLIA [id number] [address] [place] [address] [place] Platelet mean volume (Bld) [Entitic vol] 9.5 fL Normal 9.0-12.7 [facility] Comment on above: Order Comment: Speci men Type: BLOOD SPECIMEN Ordering Facility: [facility] Address: [address] [place] [address] Performed By: #### 5 8410-2 #### [facility] CLIA [id number] [address] [place] [address] [place] Platelets (Bld) [#/Vol] 211 10*3/uL Normal 150-400 [facility] Comment on above: Order Comment: Speci men Type: BLOOD SPECIMEN Ordering Facility: [facility] Address: [address] [place] [address] Performed By: #### 5 8410-2 #### [facility] CLIA [id number] [address] [place] [address] [place] RBC (Bld) [#/Vol] 5.21 10*6/uL High 3.90-5.20 [facility] Comment on above: Order Comment: Speci men Type: BLOOD SPECIMEN Ordering Facility: [facility] Address: [address] [place] [address] Performed By: #### 5 8410-2 #### [facility] CLIA [id number] [address] [place] [address] [place] WBC (Bld) [#/Vol] 8.49 10*3/uL Normal 3.70-11.00 [facility] Comment on above: Order Comment: Speci men Type: BLOOD SPECIMEN Ordering Facility: [facility] Address: [address] [place] [address] Performed By: #### 5 8410-2 #### [facility] CLIA [id number] [address] [place], [place] [address] [place] [address] [place] [address] ABD/PEL W IVCONon 023 CT ABD/PEL W IVCON * * *Final Report* * * DATE OF EXAM: Mar 31 2023 6:01PM [facility] 0530 - CT ABD/PEL W IVCON / PROCEDURE REASON: Abdominal trauma, blunt * * * * Physician Interpretation * * * * CT CHEST WITH IV CONTRAST HISTORY: Chest trauma, blunt Technique: Spiral CT acquisition of the chest from the thoracic inlet to the upper abdomen. MQ: CTCW_6 CT Dose-Length Product: 332.29 (accession [id number]), 557.99 (accession [id number]) mGy*cm CT Dose Reduction Employed: mAs-kVp adjusted based on patient size-age Contrast Media: IV administration of 100 ml of Omnipaque 300 Comparison: None. RESULT: Lung parenchyma, airways, and pleural: No consolidation. Central airways are patent. No suspicious pulmonary nodule. Lower neck, lymph nodes, and mediastinum: The imaged thyroid gland is normal. No lymphadenopathy in the supraclavicular, axillary, mediastinal, or hilar regions. Heart, pericardium, and thoracic vessels: No pericardial effusion. Normal caliber aorta. Bones and soft tissues: Chest wall is unremarkable. Degenerative changes of the thoracic spine. Assembler Arranger (topogram) images: No additional findings. CT ABDOMEN/PELVIS WITH IV CONTRAST HISTORY: Chest trauma, blunt TECHNIQUE: CT of the abdomen and pelvis was performed using standard technique, scanning from just above the dome of the diaphragm to the symphysis pubis. MQ: CTAP_3 Contrast: Contrast Media: IV administration of 100 ml of Omnipaque 300 CT Radiation dose: Integrated Dose-length product (DLP) for this visit = 332.29 (accession [id number]), 557.99 (accession [id number]) mGy*cm. CT Dose Reduction Employed: Automated exposure correction (AEC). COMPARISON: None. RESULT: Liver: No mass. Biliary: No bile duct dilatation. Spleen: No mass. No splenomegaly. Pancreas: No mass or duct dilation. Adrenals: No mass. Kidneys: No enhancing mass, calculus or hydronephrosis. GI tract: No small or large bowel dilatation. No bowel wall thickening. The appendix is inconspicuous or absent. Lymph nodes: No abdominal or pelvic lymphadenopathy. Mesentery/Peritoneum: No ascites or mass. Retroperitoneum: No mass. Vasculature: - Abdominal aorta and iliac arteries: Atherosclerotic calcifications without aneurysm. - Celiac and SMA: Patent without stenosis. - Portal venous system (SMV, splenic vein, portal vein and branches): Patent. - Hepatic veins: Patent. Pelvis: No mass, ascites or fluid collection. Bones/Soft Tissues: No significant finding. _ Assembler Arranger (topogram) images: No additional findings. IMPRESSION: Chest: No CT evidence of acute abnormality. Abdomen/pelvis: No CT evidence of acute abnormality. Shipping Associate: PSCB Transcribe Date/Time: Mar 31 2023 6:11P Dictated by : MARCO BELTRAN MD This examination was interpreted and the report reviewed and electronically signed by: MARCO BELTRAN MD on Mar 31 2023 6:21PM EST [id number] N Normal [facility] CT CHEST W IVCONon CT CHEST W IVCON * * *Final Report* * * DATE OF EXAM: Mar 31 2023 6:03PM [facility] 0539 - CT CHEST W IVCON / PROCEDURE REASON: Chest trauma, blunt * * * * Physician Interpretation * * * * CT CHEST WITH IV CONTRAST HISTORY: Chest trauma, blunt Technique: Spiral CT acquisition of the chest from the thoracic inlet to the upper abdomen. MQ: CTCW_6 CT Dose-Length Product: 332.29 (accession [id number]), 557.99 (accession [id number]) mGy*cm CT Dose Reduction Employed: mAs-kVp adjusted based on patient size-age Contrast Media: IV administration of 100 ml of Omnipaque 300 Comparison: None. RESULT: Lung parenchyma, airways, and pleural: No consolidation. Central airways are patent. No suspicious pulmonary nodule. Lower neck, lymph nodes, and mediastinum: The imaged thyroid gland is normal. No lymphadenopathy in the supraclavicular, axillary, mediastinal, or hilar regions. Heart, pericardium, and thoracic vessels: No pericardial effusion. Normal caliber aorta. Bones and soft tissues: Chest wall is unremarkable. Degenerative changes of the thoracic spine. Assembler Arranger (topogram) images: No additional findings. CT ABDOMEN/PELVIS WITH IV CONTRAST HISTORY: Chest trauma, blunt TECHNIQUE: CT of the abdomen and pelvis was performed using standard technique, scanning from just above the dome of the diaphragm to the symphysis pubis. MQ: CTAP_3 Contrast: Contrast Media: IV administration of 100 ml of Omnipaque 300 CT Radiation dose: Integrated Dose-length product (DLP) for this visit = 332.29 (accession [id number]), 557.99 (accession [id number]) mGy*cm. CT Dose Reduction Employed: Automated exposure correction (AEC). COMPARISON: None. RESULT: Liver: No mass. Biliary: No bile duct dilatation. Spleen: No mass. No splenomegaly. Pancreas: No mass or duct dilation. Adrenals: No mass. Kidneys: No enhancing mass, calculus or hydronephrosis. GI tract: No small or large bowel dilatation. No bowel wall thickening. The appendix is inconspicuous or absent. Lymph nodes: No abdominal or pelvic lymphadenopathy. Mesentery/Peritoneum: No ascites or mass. Retroperitoneum: No mass. Vasculature: - Abdominal aorta and iliac arteries: Atherosclerotic calcifications without aneurysm. - Celiac and SMA: Patent without stenosis. - Portal venous system (SMV, splenic vein, portal vein and branches): Patent. - Hepatic veins: Patent. Pelvis: No mass, ascites or fluid collection. Bones/Soft Tissues: No significant finding. _ Assembler Arranger (topogram) images: No additional findings. IMPRESSION: Chest: No CT evidence of acute abnormality. Abdomen/pelvis: No CT evidence of acute abnormality. Shipping Associate: PSC[employer] Transcribe Date/Time: Mar 31 2023 6:11P Dictated by : MARCO BELTRAN MD This examination was interpreted and the report reviewed and electronically signed by: MARCO BELTRAN MD on Mar 31 2023 6:21PM EST [id number] N Normal [facility] Comprehensive metabolic 2000 panelon 03-31-2023 Albumin [Mass/Vol] 4.3 g/dL Normal 3.9-4.9 [facility] Comment on above: Order Comment: Iban gleason Type: BLOOD SPECIMEN Ordering Facility: [facility] Address: [address] [place] [address] Performed By: #### 2 4323-8 #### [facility] CLIA [id number] [address] [place] [address] [place] ALP [Catalytic activity/Vol] 58 U/L Normal 34-123 [facility] Comment on above: Order Comment: Iban gleason Type: BLOOD SPECIMEN Ordering Facility: [facility] Address: [address] [place] [address] Performed By: #### 2 4323-8 #### [facility] CLIA [id number] [address] [place] [address] [place] ALT With P-5'-P [Catalytic activity/Vol] 31 U/L Normal 7-38 [facility] Comment on above: Order Comment: Speci men Type: BLOOD SPECIMEN Ordering Facility: [facility] Address: [address] [place] [address] Performed By: #### 2 4323-8 #### [facility] CLIA [id number] [address] [place] [address] [place] Anion gap [Moles/Vol] 14 mmol/L Normal 9-18 [facility] Comment on above: Order Comment: Speci men Type: BLOOD SPECIMEN Ordering Facility: [facility] Address: [address] [place] [address] Performed By: #### 2 4323-8 #### [facility] CLIA [id number] [address] [place] [address] [place] AST With P-5'-P [Catalytic activity/Vol] 20 U/L Normal 13-35 [facility] Comment on above: Order Comment: Speci men Type: BLOOD SPECIMEN Ordering Facility: [facility] Address: [address] [place] [address] Performed By: #### 2 4323-8 #### [facility] CLIA [id number] [address] [place] [address] [place] Bilirubin [Mass/Vol] 0.6 mg/dL Normal 0.2-1.3 [facility] Comment on above: Order Comment: Speci men Type: BLOOD SPECIMEN Ordering Facility: [facility] Address: [address] [place] [address] Performed By: #### 2 4323-8 #### [facility] CLIA [id number] [address] [place] [address] [place] Calcium [Mass/Vol] 9.3 mg/dL Normal 8.5-10.2 [facility] Comment on above: Order Comment: Speci men Type: BLOOD SPECIMEN Ordering Facility: [facility] Address: [address] [place] [address] Performed By: #### 2 4323-8 #### [facility] CLIA [id number] [address] [place] [address] [place] Chloride [Moles/Vol] 99 mmol/L Normal 97-105 [facility] Comment on above: Order Comment: Speci men Type: BLOOD SPECIMEN Ordering Facility: [facility] Address: [address] [place] [address] Performed By: #### 2 4323-8 #### [facility] CLIA [id number] [address] [place] [address] [place] CO2 [Moles/Vol] 24 mmol/L Normal 22-30 [facility] Comment on above: Order Comment: Speci men Type: BLOOD SPECIMEN Ordering Facility: [facility] Address: [address] [place] [address] Performed By: #### 2 4323-8 #### [facility] CLIA [id number] [address] [place] [address] [place] Creatinine [Mass/Vol] 0.58 mg/dL Normal 0.58-0.96 [facility] Comment on above: Order Comment: Speci men Type: BLOOD SPECIMEN Ordering Facility: [facility] Address: [address] [place] [address] Performed By: #### 2 4323-8 #### [facility] CLIA [id number] [address] [place] [address] [facility] [place] Creatinine and Glomerular filtration rate.predicted panel (S/P/Bld) 101 mL/min/1.73m??? Normal >=60 [facility] Comment on above: Order Comment: Speci men Type: BLOOD SPECIMEN Ordering Facility: [facility] Address: [address] [place] [address] Result Comment: Soraida mated Glomerular Filtration Rate (eGFR) is calculated using the 2020 CKD-EPI creatinine equation. This equation utilizes serum creatinine, sex, and age as parameters. The creatinine assay has traceable calibration to isotope dilution-mass spectrometry. Refer to KDIGO guidelines for clinical interpretation. In patients with unstable renal function, e.g. those with acute kidney injury, the eGFR may not accurately reflect actual GFR. Performed By: #### 2 4323-8 #### [facility] CLIA [id number] [address] [place] [address] [place] Glucose [Mass/Vol] 292 mg/dL High 74-99 [facility] Comment on above: Order Comment: Iban gleason Type: BLOOD SPECIMEN Ordering Facility: [facility] Address: [address] [place] [address] Result Comment: The [place] [employer] (ADA) provides guidance for cutoff values for fasting glucose and random glucose. The ADA defines fasting as no caloric intake for at least 8 hours. Fasting plasma glucose results between 100 to 125 mg/dL indicate increased risk for diabetes (prediabetes). Fasting plasma glucose results greater than or equal to 126 mg/dL meet the criteria for diagnosis of diabetes. In the absence of unequivocal hyperglycemia, results should be confirmed by repeat testing. In a patient with classic symptoms of hyperglycemia or hyperglycemic crisis, random plasma glucose results greater than or equal to 200 mg/dL meet the criteria for diagnosis of diabetes. Reference: Standards of Medical Care in Diabetes 2016, [place] [employer]. Diabetes Care. 2016.39(Suppl 1). Performed By: #### 2 4323-8 #### [facility] CLIA [id number] [address] [place] [address] [place] Potassium [Moles/Vol] 4.0 mmol/L Normal 3.7-5.1 [facility] Comment on above: Order Comment: Iban gleason Type: BLOOD SPECIMEN Ordering Facility: [facility] Address: [address] [place] [id number] Performed By: #### 2 4323-8 #### [facility] CLIA [id number] [address] [place] [address] [place] Protein [Mass/Vol] 7.4 g/dL Normal 6.3-8.0 [facility] Comment on above: Order Comment: Speci men Type: BLOOD SPECIMEN Ordering Facility: [facility] Address: [address] [place] [address] Performed By: #### 2 4323-8 #### [facility] CLIA [id number] [address] [place] [address] [facility] Sodium [Moles/Vol] 137 mmol/L Normal 136-144 [facility] Comment on above: Order Comment: Speci men Type: BLOOD SPECIMEN Ordering Facility: [facility] Address: [address] [place] [address] Performed By: #### 2 4323-8 #### [facility] CLIA [id number] [address] [place] [id number] [place] Urea nitrogen [Mass/Vol] 17 mg/dL Normal 7-21 [facility] Comment on above: Order Comment: Speci men Type: BLOOD SPECIMEN Ordering Facility: [facility] Address: [place] [address] Performed By: #### 2 4323-8 #### [facility] CLIA [id number] [address] [place] [address] [facility] ED PROV NOTEon 03-31-2023 ED PROV NOTE HNO ID: [id number] Author: Nabil Trevino MD Service: Emergency Medicine Author Type: Physician Type: ED Provider Notes Filed: 04/01/2023 1:25 AM Note Text: ED Provider Note Patient Name: Kourtney Lubin : 1960 SERVICE DATE: 03/31/23 History Patient presents with: Rib Injury This is a 62-year-old history of diabetes and other comorbidities presenting complaining of right flank and rib pain after a fall and hitting her ribs on a wooden stool. She states that the cat must of spilled its water bowl because there was water on the floor next to the bowl that she slipped on and that is how she hit her right side against a wooden stool. She denies that she hit her head or lost any consciousness. She denies any shoulder pain or hip pain or other pain. No vomiting. No nausea. No difficulty breathing. No numbness or tingling. She has been ambulatory since. She denies that she is on any anticoagulants. PAST MEDICAL HISTORY Diagnosis Date Diabetes (HCC) Psychiatric disorder Thyroid disease History reviewed. No pertinent surgical history. No family history on file. Social History Tobacco Use Smoking status: Former Types: Cigarettes Smokeless tobacco: Not on file Substance and Sexual Activity Alcohol use: Yes Drug use: Not Currently Sexual activity: Not on file ALLERGIES Allergen Reactions Clindamycin GI Upset Sulfa (Sulfonamide * Rash Review of Systems Physical Exam Vitals [03/31/23 1637] BP Pulse Temp Temp src Resp SpO2 Weight Height 128/77 85 37.1 ?C (98.8 ?F) -- 16 98 % 77.6 kg (171 lb) 1.626 m (5' 4) Physical Exam Vitals and nursing note reviewed. Constitutional: General: She is not in acute distress. Appearance: Normal appearance. She is well-developed. HENT: Head: Normocephalic and atraumatic. Right Ear: Tympanic membrane, ear canal and external ear normal. Left Ear: Tympanic membrane, ear canal and external ear normal. Nose: Nose normal. Mouth/Throat: Mouth: Mucous membranes are moist. Mucous membranes are not dry. Pharynx: Uvula midline. No oropharyngeal exudate or posterior oropharyngeal erythema. Eyes: Extraocular Movements: Extraocular movements intact. Conjunctiva/sclera: Conjunctivae normal. Right eye: Right conjunctiva is not injected. Left eye: Left conjunctiva is not injected. Pupils: Pupils are equal, round, and reactive to light. Neck: Vascular: No JVD. Cardiovascular: Rate and Rhythm: Normal rate and regular rhythm. Pulses: Normal pulses. Radial pulses are 2+ on the right side and 2+ on the left side. Femoral pulses are 2+ on the right side and 2+ on the left side. Dorsalis pedis pulses are 2+ on the right side and 2+ on the left side. Posterior tibial pulses are 2+ on the right side and 2+ on the left side. Heart sounds: Normal heart sounds. No murmur heard. No friction rub. No gallop. Pulmonary: Effort: Pulmonary effort is normal. No respiratory distress. Breath sounds: Normal breath sounds. No stridor. No wheezing, rhonchi or rales. Chest: Chest wall: Tenderness (Right Cecilio lateral chest wall) present. No lacerations or deformity. Abdominal: General: Bowel sounds are normal. There is no distension. Palpations: Abdomen is soft. Tenderness: There is no right CVA tenderness or left CVA tenderness. Comments: Right upper quadrant and right upper flank tenderness Genitourinary: Comments: Pelvic bones stable and nontender Musculoskeletal: General: No swelling, tenderness, deformity or signs of injury. Normal range of motion. Cervical back: Normal range of motion. No tenderness. Thoracic back: No signs of trauma, tenderness or bony tenderness. Lumbar back: No signs of trauma, tenderness or bony tenderness. Comments: No midline CT LS spine tenderness Skin: General: Skin is warm and dry. Capillary Refill: Capillary refill takes less than 2 seconds. Findings: No abrasion, bruising, signs of injury or laceration. Comments: No laceration Neurological: Mental Status: She is alert and oriented to person, place, and time. GCS: GCS eye subscore is 4. GCS verbal subscore is 5. GCS motor subscore is 6. Cranial Nerves: No cranial nerve deficit. Sensory: No sensory deficit. Motor: No weakness. Gait: Gait is intact. Gait normal. Psychiatric: Mood and Affect: Mood normal. Speech: Speech normal. Behavior: Behavior normal. Diagnostic Testing ED Labs Ordered and Reviewed CBC - Abnormal; Notable for the following components: Result Value Ref Range RBC 5.21 (*) 3.90 - 5.20 m/uL Hematocrit 46.8 (*) 36.0 - 46.0 % All other components within normal limits COMP METABOLIC PANEL - Abnormal; Notable for the following components: Glucose 292 (*) 74 - 99 mg/dL All other components within normal limits Procedures ED Course / Clinical Impression Clinical Impressions as of 04/01/23 0125 Soft tissue injury of chest wall, initial encounter Injury of (more content not included)... Normal [facility] CT BRAIN WO/W IVCONon 2022 CT BRAIN WO/W IVCON * * *Final Report* * * DATE OF EXAM: Jan 26 2023 10:22AM [facility] 0007 - CT BRAIN WO/W IVCON / PROCEDURE REASON: G43.E.09, Chronic migraine with aura without status migrainosus, not intractable * * * * Physician Interpretation * * * * EXAMINATION: CT BRAIN WO/W IVCON CLINICAL HISTORY: Chronic migraine headaches TECHNIQUE: Serial axial images with IV contrast were obtained from the vertex to the foramen magnum. MQ: [id number]_1 Contrast: 100 mL of O[address] IV [address] Radiation dose: Integrated Dose-Length Product (DLP) for this visit = 1589.00 mGy*cm CT Dose Reduction Employed: No dose reduction techniques were required COMPARISON: None. RESULT: Assembler Arranger (topogram) images: Post-operative change: None. Acute change: No evidence of an acute intracranial process. Hemorrhage: No intracranial hemorrhage ECASS hemorrhagic transformation score: Not Applicable Mass Lesion / Mass Effect: There is no evidence of an intracranial mass or extraaxial fluid collection. No abnormal parenchymal enhancement is appreciated. No significant mass effect. Chronic change: None apparent. Parenchyma: There is no significant volume loss. The brain parenchyma is otherwise within normal limits for age. Ventricles: The ventricles are within normal limits of size and configuration for age. Paranasal sinuses and skull base: The visualized paranasal sinuses are clear. The skull base and imaged soft tissues are unremarkable. IMPRESSION: Unremarkable enhanced and nonenhanced CT scan of brain without evidence of intracranial abnormalities Mild degree of sinonasal mucosal changes with small fluid level right side of the sphenoid sinus most consistent with acute and chronic sinusitis changes0. Temporal and mastoid bones are clear. Shipping Associate: [employer] Transcribe Date/Time: Jan 29 2023 7:33A Dictated by : ZEINAB ZURITA MD This examination was interpreted and the report reviewed and electronically signed by: ZEINAB ZURITA MD on Jan 29 2023 7:36AM EST [id number] Normal [facility] Brain/Head without Contrasto n 04-20-2022 Brain/Head without Contrast [facility] [address] [place] [id number] Brain/Head without Contrast MR#: [id number] Acct: [id number] Name: KOURTNEY LUBIN Rep #: [id number] : 1960 F 61 From: Luis M Sanchez MD PCP: Status: REG ER Study: Brain/Head without Contrast Date of Exam: 04/02 12/23 Exam# [id number] Ordering Dr: Patricia Bartlett DO INDICATION: Trauma EXAMINATION: CT BRAIN - CT Head or Brain W/O Contrast Injection TECHNIQUE: Multiple axial images were obtained of the head without intravenous contrast. A radiation dose optimization technique was used for this scan. IV Contrast dosage and agent: None. COMPARISON: None __ FINDINGS: BRAIN PARENCHYMA: No intra- or extra-axial hemorrhage. No evidence of acute infarct. No intracranial mass or mass effect. There is preservation of the bhandari/white matter interface. Posterior fossa structures are unremarkable. CSF SPACES: Appropriate for age. No hydrocephalus. Basal cisterns are patent. CALVARIUM, SKULL BASE, PARANASAL SINUSES AND MASTOID AIR CELLS: Multifocal paranasal sinus mucosal thickening. Small anterior right scalp contusion. ORBITS: Both globes, extraocular muscles, optic nerves and retrobulbar fat appear unremarkable. ASPECTS Score for Acute Strokes: 10 CT/Brain/Head without Contrast IMPRESSION: Negative Brain CT without contrast. Electronically Signed: Luis M Sanchez MD at 21:36 EST , CC: Dr. Patricia Bartlett DO Shipping Associate: Signed Normal [facility] Emergency Department Summary on 04-20-2022 Emergency Department Summary [facility] Medical Records Department [address] [place] [id number] Emergency Department Summary 04/20/22 MR#: [id number] Acct: [id number] Name: KOURTNEY LUBIN Rep #: [id number] : 1960 61 From: Patricia Bartlett DO PCP: Status:REG ER Location: ED HPI History of Present Illness Chief Complaint: Head Injury Informant: patient Narrative Narrative: Patient is a 61-year-old female with history of hypothyroid, diabetes and GERD presenting with head injury. Patient was attempting to bring her cat inside when she tripped on other outdoor rocks and fell headfirst onto a rock. She does not lose consciousness but temporarily could not see. She has a pretty severe headache which is slowly improving now that she is laying in bed. She called her insurance nurse conduit worker line who recommend she come to the ER for further evaluation. She not take anything for symptoms prior to arrival. She does have some tingling on the right side of her face but denies any other numbness or weakness. Is not on any anticoagulation. No other complaints at this time. Tetanus Immunization: >10 years [facility] Medical History Diabetes type 2, controlled Hiatal hernia Hyperlipemia Hypothyroid Home Medications dapagliflozin 5 mg tablet (Farxiga) 5 mg PO DAILY 07/12/17 [History Last Taken Unknown] fexofenadine 180 mg tablet (Alice Allergy) 180 mg PO DAILY 07/12/17 [History Last Taken Unknown] fluticasone propionate 50 mcg/actuation nasal spray,suspension 2 spray DAILY 07/12/17 [History Last Taken Unknown] levothyroxine 175 mcg tablet 150 mcg PO DAILY 07/12/17 [History Last Taken Unknown] pantoprazole 40 mg tablet,delayed release 40 mg PO DAILY 07/12/17 [History Last Taken Unknown] sitagliptin phos 100 mg-metformin ER 1,000 mg tablet,extend rel 24h mp (Janumet XR) 1 ea PO DAILY 07/12/17 [History Last Taken Unknown] atorvastatin 40 mg tablet 40 mg PO DAILY 04/20/22 [History Last Taken Unknown] Allergy/AdvReac Type Severity Reaction Status Date / Time amoxicillin Allergy Rash Verified 04/20/22 19:39 clindamycin Allergy Hives Verified 04/20/22 19:39 Sulfa (Sulfonamide Allergy Rash Verified 04/20/22 19:38 Antibiotics) Social History Smoking Status: Former smoker ROS ROS ED Constitutional Constitutional ED: Denies chills or fever(s) Eyes Eyes: Reports change in vision ENT ENT ED: Denies ear pain, rhinorrhea or sore throat Cardiovascular Cardiovascular: Denies chest pain Respiratory/Chest Respiratory/Chest: Denies cough Gastrointestinal Gastrointestinal: Denies nausea or vomiting Musculoskeletal Musculoskeletal: Denies arthralgias or myalgias Integumentary Denies rash Neurologic Neurologic: Reports headache(s); Denies weakness Psychiatric Psychiatric: Denies anxiety Hematologic/Lymphatic Hematologic/Lymphatic : Denies easy bleeding or easy bruising EXAM Physical Exam Const Vital Signs: 04/20/22 19:36 04/20/22 20:51 Temperature 98.0 F Temperature Source Temporal Pulse Rate 92 Respiratory Rate 16 Respiratory Effort Normal Respiratory Depth Normal Respiratory Pattern Normal Blood Pressure 158/67 H Blood Pressure Mean 97 Pulse Ox 94 Oxygen Delivery Method Room Air Room Air Positive well nourished and well developed General Appearance ED: well developed and NAD HEENT Reports TM's clear HEENT Narrative: Abrasion and swelling of the right forehead. No active bleeding. Slight edema of the right eyebrow area and upper eyelid. Nose: Negative for septum abnormal Tympanic Membrane ED: Yes TM's clear Eyes PERRL and EOMs intact bilaterally General Eye ED: Yes other Other Details: No conjunctival hemorrhage appreciated, no signs of entrapment of the eye muscles Neck full ROM Neck Narrative: No step-off sign. General: Negative for tenderness Chest Wall inspection of chest normal Resp normal respiratory effort and clear to auscultation bilaterally Cardio regular rhythm and no murmurs GI non-distended Extremity normal to inspection and full ROM Neuro oriented x3, CN's II-XII intact bilaterally, moves all extremities, no focal motor deficits and no sensory deficits noted Skin Skin Narrative: Approximately 4 cm irregular superficial abrasion to the right forehead. Scattered superficial abrasions to the left thenar eminence/medial wrist MDM MDM MDM Narrative Medical decision making narrative: Patient is evaluated for closed head injury. She has an abrasion to her forehead. She has a temporary vision loss and some tingling on the right side of her face. Because of these findings I did obtain a head CT to rule out intracranial hemorrhage. Clinically I do not suspect an orbit (more content not included)... Normal [facility] SPINE, CERVICAL; MIN 4 VIEWS on 02-15-2019 SPINE, CERVICAL; MIN 4 VIEWS Patient Name: KOURTNEY LUBIN STUDY: SPINE, CERVICAL MIN 4 VIEWS; 02/15/2019 1:03 pm INDICATION: Neck pain, shooting pain. COMPARISON: None. ACCESSION NUMBER(S): [id number] ORDERING CLINICIAN: MIROSLAVA WATSON TECHNIQUE: Four views of the cervical spine were reviewed including obliques. FINDINGS: The cervical vertebrae demonstrate normal vertebral body height and alignment without definite evidence of fracture or subluxation. No significant neural foraminal narrowing is identified. The intervertebral disc spaces are maintained. No suspicious lytic or blastic osseous lesion. IMPRESSION: No radiographic evidence of acute fracture or subluxation in the cervical spine. Electronically signed by: DO Gerda ACOSTA [facility] NM Gastric Emptying Studyon 08-23-2017 NM Gastric Emptying Study NUCLEAR MEDICINE GASTRIC EMPTYING:INDICATION: Epigastric pain.COMPARISON: None.DATE OF EXAMINATION: 08/23/2017RADIOPHARMAC EUTICAL: 1.1 millicurie Technetium-99m sulfur colloid.After the oral administration of 1.1 millicurie of Tc 99m sulfur colloid mixedwith two eggs, a pat of butter and two pieces of toast a gastric emptying studywas performed. After 2 hrs 15% of the ingested meal remained within thestomach.IMPRESSION : Essentially normal gastric emptying with 15% of the ingested mealremaining within the stomach after 2 hrs. Normal for this institution is 19 to52% remaining within the stomach after 2 hours.Report Dictated on Workstation: [id number] ticated by: Sam Dumont: 08/23/2017 11:30Read by: AMISHA DUMONT II, MDDate: 08/23/2017 11:30 [facility] Vital Signs Date Time Vital Sign Value Performing Clinician Denice collins 04-20-2022 19:36-0500 Body height 162.56 cm [facility] 04-20-2022 19:36-0500 Body mass index (BMI) [Ratio] 31.9 kg/m2 [facility] 04-20-2022 19:36-0500 Body temperature 98 [degF] [facility] 04-20-2022 19:36-0500 Body weight 84.36 kg [facility] 04-20-2022 19:36-0500 Diastolic blood pressure 67 mm[Hg] [facility] 04-20-2022 19:36-0500 Heart rate 92 /min [facility] 04-20-2022 19:36-0500 Respiratory rate 16 /min [facility] 04-20-2022 19:36-0500 SaO2% (BldA) [Mass fraction] 94 % [facility] 04-20-2022 19:36-0500 Systolic blood pressure 158 mm[Hg] [facility] Encounters Encounter Date Encounter Type Care Provider Facility Start: 03-31-2023 End: 03-31-2023 Emergency department patient visit JENNIFER HERNANDEZ Facility:[facility] Start: 01-26-2023 ambulatory JENNIFER HERNANDEZ Facility :[facility] Start: 01-26-2023 End: 01-26-2023 Subsequent hospital visit by physician [facility] Work Phone: [facility] Comment on above: Chronic migraine wit h aura, not intractable, without status migrainosus [G43.E09] Start: 04-20-2022 End: 04-21-2022 Emergency department patient visit No Primary Care Physician Facility:[facility] Start: 04-20-2022 End: 04-20-2022 Emergency department patient visit [facility] Start: 08-24-2017 Ambulatory [facility] Start: 08-23-2017 End: 08-23-2017 Ambulatory [facility] Start: 08-17-2017 End: 08-17-2017 Ambulatory [facility] Procedures Date Procedure Procedure Detail Performing Clinician Start: 04-20-2022 CT of head without contrast Start: 03-31-2019 Follow-up visit Start: 03-27-2019 Follow-up visit Start: 03-21-2019 Follow-up visit Start: 02-15-2019 Follow-up visit Plan of Treatment Date Care Activity Detail Author Start: 12-01-2022 Covid-19 Vaccine ( season) Covid-19 Vaccine ( season) [facility] Start: 12-01-2022 Influenza vaccination Influenza Vaccine (#1) [facility] Start: 04-02-2022 Depression Assessment Depression Assessment [facility] Start: 07-13-2020 Diabetes Screening Diabetes Screening [facility] Start: 2018 RSV Vaccine (1 - 1-dose 60+ series) RSV Vaccine (1 - 1-dose 60+ series) [facility] Start: 2008 Shingrix Vaccine (1 of 2) Shingrix Vaccine (1 of 2) [facility] Start: 11-15-2003 Cologuard (FIT-DNA) Cologuard (FIT-DNA) [facility] Start: 11-15-2003 Colonoscopy Colonoscopy [facility] Start: 11-15-2003 Colorectal Cancer Screening Colorectal Cancer Screening [facility] Start: 11-15-[address] Colonography [facility] Start: 11-15-2003 Fecal Occult Blood Fecal Occult Blood [facility] Start: 11-15-2003 Lipid 1996 panel - Serum or Plasma Lipid Screening [facility] Start: 11-15-2003 Sigmoidoscopy Sigmoidoscopy [facility] Start: 1998 Mammography Mammogram Screening [facility] Start: 1988 HPV Testing HPV Testing [facility] Start: 11-15-1979 Pap Testing Pap Testing [facility] Start: 1977 Urine microalbumin profile DTaP,Tdap,Td Vaccine (1 - Tdap) [facility] Start: 1976 Hepatitis C Screening Hepatitis C Screening [facility] Start: 1976 HIV Screening HIV Screening [facility] Patient Education ED Concussion ED Head Injury (Adult) [facility] Work Phone: Immunizations Immunization Date Immunization Notes Care Provider Allyson sanchez 04-27-2015 influenza virus vacc ine, unspecified formulation [facility] Work Phone: [facility] Payers Date Payer Category Payer Unknown [employer] PPO [id number] 2022-Present [phone] [address] [place] [address] PPO [id number] 2022 Unknown [id number] 2022 Private Health Insurance [id number] 2022 Self-pay [id number] 1959 Unknown [id number] Private Health Insurance [id number] Unknown [facility] [id number] Unknown [id number] Social History Date Type Detail Facility Start: 04-20-2022 Tobacco smoking stat [facility] Unknown if ever smoked [facility] Start: 1960 Sex Assigned At Female [facility] Start: 1960 Sex Assigned At Not on file [facility] Gender identity Not on file [facility] Discharge summary 04-20-2022 Note Date & Type Note Facility 04-20-2022 Discharge summary Note Date/Time April 20, 2022 9:11pm [facility] Medical Records Department [address] [place] [address] Emergency Department Summary 04/20/22 MR#: [id number] Acct: [id number] Name: KOURTNEY LUBIN Rep #:[id number] : 1960 61 From: Patricia Asencio PCP: Status:REG ER Location: ED HPI History of Present Illness Chief Complaint: Head Injury Informant: patient Narrative Narrative: Patient is a 61-year-old female with history of hypothyroid, diabetes and GERD presenting with head injury. Patient was attempting to bring her cat inside when she tripped on other outdoor rocks and fell headfirst onto a rock. She does not lose consciousness but temporarily could not see. She has a pretty severe headache which is slowly improving now that she is laying in bed. She called her insurance nurse conduit worker line who recommend she come to the ER for further evaluation. She not take anything for symptoms prior to arrival. She does have some tingling on the right side of her face but denies any other numbness or weakness. Is not on any anticoagulation. No other complaints at this time. Tetanus Immunization: >10 years [facility] Medical History Diabetes type 2, controlled Hiatal hernia Hyperlipemia Hypothyroid Home Medications dapagliflozin 5 mg tablet (Farxiga) 5 mg PO DAILY 07/12/17 [History Last Taken Unknown] fexofenadine 180 mg tablet (Alice Allergy) 180 mg PO DAILY 07/12/17 [History Last Taken Unknown] fluticasone propionate 50 mcg/actuation nasal spray,suspension 2 spray DAILY 07/12/17 [History Last Taken Unknown] levothyroxine 175 mcg tablet 150 mcg PO DAILY 07/12/17 [History Last Taken Unknown] pantoprazole 40 mg tablet,delayed release 40 mg PO DAILY 07/12/17 [History Last Taken Unknown] sitagliptin phos 100 mg-metformin ER 1,000 mg tablet,extend rel 24h mp (Janumet XR) 1 ea PO DAILY 07/12/17 [History Last Taken Unknown] atorvastatin 40 mg tablet 40 mg PO DAILY 04/20/22 [History Last Taken Unknown] Allergy/AdvReac Type Severity Reaction Status Date / Time amoxicillin Allergy Rash Verified 04/20/22 19:39 clindamycin Allergy Hives Verified 04/20/22 19:39 Sulfa (Sulfonamide Allergy Rash Verified 04/20/22 19:38 Antibiotics) Social History Smoking Status: Former smoker ROS ROS ED Constitutional Constitutional ED: Denies chills or fever(s) Eyes Eyes: Reports change in vision ENT ENT ED: Denies ear pain, rhinorrhea or sore throat Cardiovascular Cardiovascular: Denies chest pain Respiratory/Chest Respiratory/Chest: Denies cough Gastrointestinal Gastrointestinal: Denies nausea or vomiting Musculoskeletal Musculoskeletal: Denies arthralgias or myalgias Integumentary Denies rash Neurologic Neurologic: Reports headache(s); Denies weakness Psychiatric Psychiatric: Denies anxiety Hematologic/Lymphatic Hematologic/Lymphatic: Denies easy bleeding or easy bruising EXAM Physical Exam Const Vital Signs: 04/20/22 19:36 04/20/22 20:51 Temperature 98.0 F Temperature Source Temporal Pulse Rate 92 Respiratory Rate 16 Respiratory Effort Normal Respiratory Depth Normal Respiratory Pattern Normal Blood Pressure 158/67 H Blood Pressure Mean 97 Pulse Ox 94 Oxygen Delivery Method Room Air Room Air Positive well nourished and well developed General Appearance ED: well developed and NAD HEENT Reports TM's clear HEENT Narrative: Abrasion and swelling of the right forehead. No active bleeding. Slight edema of the right eyebrow area and upper eyelid. Nose: Negative for septum abnormal Tympanic Membrane ED: Yes TM's clear Eyes PERRL and EOMs intact bilaterally General Eye ED: Yes other Other Details: No conjunctival hemorrhage appreciated,no signs of entrapment of the eye muscles Neck full ROM Neck Narrative: No step-off sign. General: Negative for tenderness Chest Wall inspection of chest normal Resp normal respiratory effort and clear to auscultation bilaterally Cardio regular rhythm and no murmurs GI non-distended Extremity normal to inspection and full ROM Neuro oriented x3, CN's II-XII intact bilaterally, moves all extremities, no focal motor deficits and no sensory deficits noted Skin Skin Narrative: Approximately 4 cm irregular superficial abrasion to the right forehead. Scattered superficial abrasions to the left thenar eminence/medial wrist MDM MDM MDM Narrative Medical decision making narrative: Patient is evaluated for closed head injury. She has an abrasion to her forehead. She has a temporary vision loss and some tingling on the right side of her face. Because of these findings I did obtain a head CT to rule out intracranial hemorrhage. Clinically I do not suspect an orbit fracture. CT is negative for any skull fracture or intracranial bleed. Patient is feeling better in the ER. She was given a dose of Tylenol. Will be discharged home. Is given concussion precautions. Is given a work note for tomorrow. Counseled alternate ibuprofen and Tylenol. Use ice for her forehead. Counseled on dependent swelling of the face associated with injuries. Patient agreeable with plan of care. Discharged home in stable and improved condition. Radiography Diagnostic Testing: Clinical Impression(s) from Imaging Studies Brain CT 04/20/22 21:06 IMPRESSION: Negative Brain CT without contrast. Electronically Signed: Luis M Sanchez MD at 21:36 EST Reading Location ID and State: [facility] / [place] Tel , Service support , Discharge Plan Triage Chief Complaint: Head Injury ED Provider: Patricia Bartlett Dx/Rx/DC Orders Clinical Impression: Closed head injury, Abrasion of forehead Instructions: ED Concussion, ED Head Injury (Adult) Prescriptions: No Action levothyroxine 175 MCG tablet 150 mcg PO DAILY fexofenadine [Alice Allergy] 180 MG tablet 180 mg PO DAILY pantoprazole 40 MG tablet 40 mg PO DAILY fluticasone propionate 1 SPRAY spray,suspension 2 spray NASAL DAILY Janumet XR 1 EACH tablet, ER multiphase 24 hr 1 ea PO DAILY Farxiga 5 MG tablet 5 mg PO DAILY atorvastatin 40 mg Tablet 40 mg PO DAILY Stand Alone Forms: ED Work / School Excuse Disposition Disposition: Home, Self Care What to do if you have Problems For any increased pain, shortness of breath, bleeding, nausea or vomiting, chestpain, or any unexpected problems, contact your Primary Care Provider. Call [facility] ([phone]) or report to the closest Emergency Room. Call 911 if necessary. 04/20/222230 <Electronically signed by Patricia Bartlett DO> Cosigner Signature (if applicable): CC: ~ Signed [facility] Work Phone: Evaluation note Note Date & Type Note Facility Evaluation note No assessment information availa ble [facility] Work Phone: Summary Purpose Family History No Family History Records FoundNo Family History Records FoundNo Family History Records FoundNo Family History Records FoundNo Family History Records Found Advance Directives No Advanced Directives Records Found Advance Directive Response Recorded Date/ Time Living Will No April 20 8:51pm Power of [employer] No April 20, 2022 8:51pm Chief Complaint and Reason for Visit Chief Complaint HEAD INJURY Additional Source Comments INFORMATION SOURCE (unrecogn ized section and content) DATE CREATED AUTHOR 09/19/2017 [facility] DATE CREATED AUTHOR AUTHOR'S ORGANIZ ATION 04/01/2019 [facility] DATE CREATED AUTHOR AUTHOR'S ORGANIZ ATION 04/01/2019 [employer] DATE CREATED AUTHOR AUTHOR'S ORGANIZ ATION 05/01/2022 [facility] DATE CREATED AUTHOR AUTHOR'S ORGANIZ ATION 04/02/2023 [facility] Care Teams (unrecognized sec tion and content) Team Status: Active Member Role Status Dates No Primary Care Physician Family Provider Active Team Status: Inactive Member Role Status Dates Dr. Patricia Bartlett DO Emergency Provider Active Dietetics Teacher Relationship Specialty Start Date End Date Jennifer Hernandez MD [facility] [address] [place] [address] PCP - General Family Medicine 07/13/17 Goals (unrecognized section and content) Goals may be documented in a n alternate section Source Comments (unrecognize d section and content) In the event this informatio n is protected by the Federal Confidentiality of Alcohol and Drug Abuse Patient Records regulations: The Federal rules restrict any use of the information to criminally investigate or prosecute any alcohol or drug abuse patient.[facility] Reason for Visit (unrecogniz ed section and content) Specialty Diagnoses / Procedures Referred By Contac t Referred To Contact Radiology / [facility] Diagnoses Chronic migraine with aura, not intractable, without status migrainosus ORDER IN SCAN DOCS AUTH [id number] THROUGH 02/08/[address] BRAIN W CONTRAST Procedures CT HEAD/BRAIN W/CONTRAST MATERIAL CT [facility] [address] Jennifer Hernandez MD [address] [place] [address] [facility] [address] [place] [address] Referral ID Status Reason Start Date Expiration Date Visits Re quested Visits Authorized [id number] Closed 01/10/2023 02/08/2023 1 1 FOR RECORDS PERTAINING TO PATIENTS WHO ARE OR HAVE BEEN ENROLLED IN A CHEMICAL DEPENDENCY/SUBSTANCEABUSE PROGRAM, SOME INFORMATION MAY BE OMITTED. This clinical summary was aggregated from multiple sources. Caution should be exercised in using it in the provision of clinical care. This summary normalizes information from multiple sources, and as a consequence, information in this document may materially change the coding, format and clinical context of patient data. In addition, data may be omitted in some cases. CLINICAL DECISIONS SHOULD BE BASED ON THE PRIMARY CLINICAL RECORDS. [facility]. provides no warranty or guarantee of the accuracy or completeness of information in this document.
== END 2025-03-31 19:49 | disposition home or self-care (01) ==
PROVIDERS: Emergency Provider Emergency Medicine; PCP Family Medicine; Visit Provider Emergency Medicine
DX: R10.31 Right lower quadrant pain (principal); E11.9 Type 2 diabetes mellitus without complications; E78.5 Hyperlipidemia, unspecified; Z87.891 Personal history of nicotine dependence; Z79.899 Other long term (current) drug therapy
CPT/HCPCS: 74177; 80053; 81001; 83690; 85025; 96374; 96376; 99284; Q9967; A4216